=== PATIENT | male | born 1975 | race African-American/Black ===

== ENCOUNTER 2016-08-24 10:38 | Inpatient (IN) | payer MEDICAID, OTHER ==
[~2016-08-24] VITALS: Ht 172.7 cm; Wt 179.8 kg
[~2016-08-24 10:38] MED LIST: ARIP10TA14 PO; DULO20CA30 PO; METF500T4 PO
[2016-08-24] MEDS ORDERED: INSLAN SQ (11:20)
[2016-08-24] MEDS ORDERED: INSU100C14 SQ (11:20)
[2016-08-24 11:21] LABS: GLUCOSE,POINT OF CARE 160 MG/DL (70-110)
[2016-08-24 12:04] LABS: BASOPHILS % (AUTO) 0.7 % (0.0-2.0); HEMATOCRIT 41.8 % (41-53); HEMOGLOBIN 14.1 g/dL (13.5-17.5); LYMPHOCYTES # (AUTO) 3.5 K/uL (1.0-4.8); LYMPHOCYTES % (AUTO) 36.6 % (22.0-44.0); MEAN CORPUSCULAR HEMOGLOBIN 26.6 pg (26.0-34.0); MEAN CORPUSCULAR HGB CONC 33.7 G/dL (31.0-37.0); MEAN CORPUSCULAR VOLUME 79 fL (80-100); MONOCYTES # (AUTO) 0.8 K/uL (0.1-1.0); NEUTROPHILS % (AUTO) 52.7 % (40.0-70.0); PLATELET COUNT (AUTO) 483 K/uL (150-450); RED BLOOD CELL COUNT(AUTO) 5.29 MIL/uL (4.50-5.90); RED CELL DISTRIBUTION WIDTH 15.1 % (11.5-14.5); WHITE BLOOD COUNT (AUTO) 9.5 K/uL (4.5-11.0)
[2016-08-24 12:13] LABS: ANION GAP 8 mmol/L (8-16); CALCIUM, TOTAL 8.7 mg/dL (8.8-10.5); CARBON DIOXIDE 29 mmol/L (22-29); CHLORIDE 102 mmol/L (98-107); CREATININE 1.06 mg/dL (0.60-1.30); GLOMERULAR FILTR. RATE CALC > 60 mL/min (>60); POTASSIUM 3.7 mmol/L (3.5-5.1); SODIUM SERUM 139 mmol/L (136-145); UREA NITROGEN, BLOOD 16 mg/dL (7-18)
[2016-08-24 12:15] LABS: ALANINE AMINOTRANSFERASE 23 U/L (12-78); ALBUMIN 3.3 g/dL (3.4-5.0); ASPARTATE AMINOTRANSFERASE 10 U/L (15-37); BILIRUBIN,TOTAL 0.1 mg/dL (0.1-1.0); TOTAL PROTEIN, SERUM 7.1 g/dL (6.4-8.2)
[2016-08-24] MEDS ORDERED: DiphenhydrAMINE HCL 50 MG/ML VIAL IM ONE (16:00)
[2016-08-24] MEDS ORDERED: HALOPERIDOL LACTATE 5 MG/ML VIAL IM ONE (16:00)
[2016-08-24] MEDS ORDERED: LORazepam 2 MG/ML VIAL IM ONE (16:00)
[2016-08-24] MEDS ORDERED: HALOPERIDOL 5 MG TABLET PO PRN (16:30)
[2016-08-24] MEDS ORDERED: LORazepam 2 MG TABLET PO PRN (16:30)
[2016-08-24 20:44] VITALS: BP 156/95
[2016-08-24] MEDS: BENZTROPINE MESYLATE 1 MG TABLET PO SCH (21:00)
[2016-08-24] MEDS: HALOPERIDOL 10 MG TABLET PO SCH (21:00)
[2016-08-24 21:26] LABS: GLUCOSE,POINT OF CARE 371 MG/DL (70-110)
[2016-08-24] MEDS: INSULIN DETEMIR 100 UNITS/ML SQ SCH (21:30)
[2016-08-24] MEDS ORDERED: LISINOPRIL 20 MG TABLET PO ONE (21:30)
[2016-08-24] MEDS ORDERED: DEXTROSE 50%-WATER 25 GM/50 ML SYRINGE IVP PRN (21:30)
[2016-08-25] MEDS: INSULIN ASPART 100 UNITS/ML SQ PRN ×4 (00:46→21:38)
[2016-08-25 05:08] LABS: GLUCOSE,POINT OF CARE 211 MG/DL (70-110)
[2016-08-25] MEDS: LISINOPRIL 20 MG TABLET PO SCH (09:00)
[2016-08-25] MEDS: BENZTROPINE MESYLATE 1 MG TABLET PO SCH ×2 (09:51→20:59)
[2016-08-25] MEDS: MetFORMIN HCL 500 MG TABLET PO SCH ×2 (09:51→18:48)
[2016-08-25 11:56] LABS: GLUCOSE,POINT OF CARE 241 MG/DL (70-110)
[2016-08-25 17:17] LABS: GLUCOSE,POINT OF CARE 200 MG/DL (70-110)
[2016-08-25 18:58] VITALS: BP 136/82
[2016-08-25] MEDS ORDERED: IBUPROFEN 400 MG TABLET PO PRN (19:45)
[2016-08-25] MEDS ORDERED: ACETAMINOPHEN 325 MG TABLET PO PRN (19:45)
[2016-08-25 20:15] LABS: GLUCOSE,POINT OF CARE 274 MG/DL (70-110)
[2016-08-25] MEDS: HALOPERIDOL 10 MG TABLET PO SCH (20:59)
[2016-08-25] MEDS: INSULIN DETEMIR 100 UNITS/ML SQ SCH ×2 (21:00→21:39)
[2016-08-26 05:21] LABS: GLUCOSE,POINT OF CARE 214 MG/DL (70-110)
[2016-08-26 05:29] LABS: HEMOGLOBIN A1C 9.5 % (4.5-6.2)
[2016-08-26 05:37] VITALS: BP 115/68
[2016-08-26 05:47] LABS: CHOL/HDL RATIO 1.7 (4.2-7.3); THYROID STIMULATING HORMONE 2.18 uIU/mL (0.36-3.74)
[2016-08-26] MEDS: BENZTROPINE MESYLATE 1 MG TABLET PO SCH (07:53)
[2016-08-26] MEDS: MetFORMIN HCL 500 MG TABLET PO SCH ×2 (07:53→17:39)
[2016-08-26] MEDS: INSULIN ASPART 100 UNITS/ML SQ PRN ×4 (07:54→20:35)
[2016-08-26] MEDS: LISINOPRIL 20 MG TABLET PO SCH (07:55)
[2016-08-26 08:00] VITALS: BP 106/68
[2016-08-26] MEDS: INSULIN DETEMIR 100 UNITS/ML SQ SCH (09:06)
[2016-08-26 11:26] LABS: GLUCOSE,POINT OF CARE 213 MG/DL (70-110)
[2016-08-26 17:11] LABS: GLUCOSE,POINT OF CARE 179 MG/DL (70-110)
[2016-08-26 17:40] VITALS: BP 140/90
[2016-08-26] MEDS ORDERED: -PHARMACY VACCINE NOTE- MISC ONE ×2 (18:30)
[2016-08-26] MEDS ORDERED: INFLUENZA VIRUS VACCINE QVS 2016-17 (3YR+)/PF 60 MCG/0.5 ML SYRINGE IM ONE (18:30)
[2016-08-26] MEDS ORDERED: HALOPERIDOL DECANOATE 100 MG/ML VIAL IM SCH (18:30)
[2016-08-26] MEDS: HALOPERIDOL 10 MG TABLET PO SCH (20:33)
[2016-08-26] MEDS: ZOLPIDEM TARTRATE 10 MG TABLET PO PRN (20:33)
[2016-08-26 20:36] LABS: GLUCOSE,POINT OF CARE 315 MG/DL (70-110)
[2016-08-27 05:36] LABS: GLUCOSE,POINT OF CARE 215 MG/DL (70-110)
[2016-08-27] MEDS: MetFORMIN HCL 500 MG TABLET PO SCH ×2 (06:51→17:14)
[2016-08-27] MEDS: INSULIN ASPART 100 UNITS/ML SQ PRN ×4 (06:53→20:13)
[2016-08-27] MEDS: LISINOPRIL 20 MG TABLET PO SCH (09:13)
[2016-08-27] MEDS: BENZTROPINE MESYLATE 1 MG TABLET PO SCH ×2 (09:13→17:14)
[2016-08-27] MEDS: INSULIN DETEMIR 100 UNITS/ML SQ SCH ×2 (09:19→17:21)
[2016-08-27 09:31] LABS: GLUCOSE,POINT OF CARE 336 MG/DL (70-110)
[2016-08-27 09:47] VITALS: BP 131/79
[2016-08-27 11:36] LABS: GLUCOSE,POINT OF CARE 266 MG/DL (70-110)
[2016-08-27 17:16] VITALS: BP 119/60
[2016-08-27 17:21] LABS: GLUCOSE,POINT OF CARE 297 MG/DL (70-110)
[2016-08-27 20:16] LABS: GLUCOSE,POINT OF CARE 273 MG/DL (70-110)
[2016-08-27] MEDS: HALOPERIDOL 10 MG TABLET PO SCH (20:24)
[2016-08-27] MEDS: ZOLPIDEM TARTRATE 10 MG TABLET PO PRN (20:57)
[2016-08-28 05:31] LABS: GLUCOSE,POINT OF CARE 207 MG/DL (70-110)
[2016-08-28] MEDS: MetFORMIN HCL 500 MG TABLET PO SCH ×2 (06:35→17:09)
[2016-08-28] MEDS: INSULIN ASPART 100 UNITS/ML SQ PRN ×3 (06:38→17:35)
[2016-08-28 06:40] VITALS: BP 118/63
[2016-08-28 08:07] VITALS: BP 120/75
[2016-08-28] MEDS: LISINOPRIL 20 MG TABLET PO SCH (10:13)
[2016-08-28] MEDS: BENZTROPINE MESYLATE 1 MG TABLET PO SCH ×2 (10:13→17:09)
[2016-08-28] MEDS: INSULIN DETEMIR 100 UNITS/ML SQ SCH ×2 (10:15→17:34)
[2016-08-28 16:00] VITALS: BP 124/68
[2016-08-28] MEDS: HALOPERIDOL 10 MG TABLET PO SCH (20:39)
[2016-08-28 20:40] LABS: GLUCOSE,POINT OF CARE 313 MG/DL (70-110)
[2016-08-28 20:50] LABS: GLUCOSE,POINT OF CARE 232 MG/DL (70-110)
[2016-08-28 20:50] LABS: GLUCOSE,POINT OF CARE 324 MG/DL (70-110)
[2016-08-28] MEDS: ZOLPIDEM TARTRATE 10 MG TABLET PO PRN (22:04)
[2016-08-28] MEDS ORDERED: HALO10 PO (22:18)
[2016-08-28] MEDS ORDERED: BENZ1TAB10 PO (22:18)
[2016-08-29] MEDS ORDERED: LISI-662 PO (00:12)
[2016-08-29] MEDS ORDERED: INSU100V12 SQ (00:12)
[2016-08-29 05:26] LABS: GLUCOSE,POINT OF CARE 193 MG/DL (70-110)
[2016-08-29] MEDS: MetFORMIN HCL 500 MG TABLET PO SCH (06:35)
[2016-08-29] MEDS: INSULIN ASPART 100 UNITS/ML SQ PRN ×2 (06:44→11:53)
[2016-08-29 08:08] VITALS: BP 106/69
[2016-08-29] MEDS: BENZTROPINE MESYLATE 1 MG TABLET PO SCH (09:21)
[2016-08-29] MEDS: LISINOPRIL 20 MG TABLET PO SCH (09:21)
[2016-08-29] MEDS: INSULIN DETEMIR 100 UNITS/ML SQ SCH (09:25)
[2016-08-29 11:35] LABS: GLUCOSE,POINT OF CARE 217 MG/DL (70-110)
== END 2016-08-29 14:15 | disposition home or self-care (01) | DRG 750 ==
LOC: EMS 10:39 → AHU 20:23 → 3EI 08-26 17:59
PROVIDERS: ADMIT Psychiatry & Neurology Psychiatry; ATTEND Psychiatry & Neurology Psychiatry
DX: F25.9 Schizoaffective disorder, unspecified (principal); R45.851 Suicidal ideations; Z68.44 Body mass index [BMI] 60.0-69.9, adult; E66.01 Morbid (severe) obesity due to excess calories; I10 Essential (primary) hypertension; E11.9 Type 2 diabetes mellitus without complications; F31.9 Bipolar disorder, unspecified; M79.7 Fibromyalgia; F17.290 Nicotine dependence, other tobacco product, uncomplicated; F15.10 Other stimulant abuse, uncomplicated; Z71.51 Drug abuse counseling and surveillance of drug abuser; Z79.4 Long term (current) use of insulin; Z79.899 Other long term (current) drug therapy; Z98.890 Other specified postprocedural states; Z91.14 Patient's other noncompliance with medication regimen; Z28.21 Immunization not carried out because of patient refusal
CPT/HCPCS: 82962; 83036; 84443; 96372; 99285; G0480; J1200; J1630; J1631; J1815; J2060